=== PATIENT | male | born 1990 | race Caucasian/White ===

== ENCOUNTER 2017-10-16 08:30 | Emergency (ER) | payer OTHER ==
[~2017-10-16] VITALS: Ht 172.7 cm; Wt 74.8 kg
== END 2017-10-16 09:49 | disposition home or self-care (01) ==
LOC: ED 08:30
DX: J02.8 Acute pharyngitis due to other specified organisms (principal)

== ENCOUNTER 2018-07-30 14:27 | Emergency (ER) | payer SELFPAY ==
[~2018-07-30] VITALS: Ht 172.7 cm; Wt 79.4 kg
[2018-07-30] MEDS ORDERED: EPIPEN 2-P0.3 MG/0.3 IJ (15:40)
== END 2018-07-30 15:59 | disposition home or self-care (01) ==
LOC: ED 14:27
DX: T63.441A Toxic effect of venom of bees, accidental (unintentional), initial encounter (principal); Y92.89 Other specified places as the place of occurrence of the external cause; Z91.030 Bee allergy status

== ENCOUNTER 2018-08-23 01:51 | Emergency (ER) | payer SELFPAY ==
[~2018-08-23] VITALS: Ht 172.7 cm; Wt 74.8 kg
[~2018-08-23 01:51] MED LIST: EPIPEN 2-P0.3 MG/0.3 IJ
[2018-08-23 02:34] LABS: HEMATOCRIT 45.6 % (42.0-52.0); HEMOGLOBIN 16.1 g/dl (14.0-18.0); MEAN CELL VOLUME 86.9 fl (80.0-94.0); MEAN CORPUSCULAR HGB 30.7 pg (27.0-31.0); MEAN CORPUSCULAR HGB CONC 35.3 g/dl (33.0-37.0); MEAN PLATELET VOLUME 10.5 fl (9.6-12.3); PLATELET COUNT AUTOMATED 329 10*3/uL (130-400); RED BLOOD COUNT 5.25 10*6/uL (4.50-5.90); WHITE BLOOD COUNT 12.4 10*3/uL (4.8-10.8)
[2018-08-23 02:55] LABS: PLATELET SUFFICIENCY NORMAL (NORMAL); TOTAL CELLS COUNTED 100 #CELLS
[2018-08-23 03:25] LABS: ALBUMIN 3.3 gm/dl (3.1-4.5); ALKALINE PHOSPHATASE 52 U/L (45-117); BUN 6 mg/dl (7-24); CHLORIDE 106 mmol/L (98-107); POTASSIUM 3.1 mmol/L (3.5-5.1); SGOT/AST 10 IU/L (3-35); SGPT/ALT 16 U/L (12-78); SODIUM 141 mmol/L (136-145)
[2018-08-23 03:58] LABS: URINE AMPHETAMINES < 1000 (1000ng/ml); URINE BARBITURATES < 200 (200ng/ml); URINE BENZODIAZEPINES < 200 (200ng/ml); URINE CANNABINOIDS (THC) > 50 (50ng/ml); URINE COCAINE < 300 (300ng/ml); URINE METHADONE < 300 (300ng/ml); URINE OPIATES < 300 (300ng/ml); URINE PHENCYCLIDINE < 25 (25ng/ml)
[2018-08-23 03:59] LABS: BILIRUBIN NEGATIVE (NEGATIVE); BLOOD NEGATIVE (NEGATIVE); CLARITY SL CLOUDY (CLEAR); COLOR YELLOW (YELLOW); GLUCOSE NEGATIVE (NEGATIVE); KETONE 3+ (NEGATIVE); SPECIFIC GRAVITY 1.015 (1.005-1.030)
[2018-08-23 04:00] LABS: LEUKO ESTERASE NEGATIVE (NEGATIVE); NITRITE NEGATIVE (NEGATIVE)
[2018-08-23 04:01] LABS: MUCOUS TRACE
== END 2018-08-23 06:40 | disposition home or self-care (01) ==
LOC: ED 01:51
PROVIDERS: Emergency Medicine
DX: B34.9 Viral infection, unspecified (principal); E87.6 Hypokalemia; Z91.030 Bee allergy status